=== PATIENT | male | born 1965 | race Caucasian/White ===

== ENCOUNTER 2016-10-23 11:11 | Emergency (ER) | payer OTHER ==
[2016-10-23 11:20] VITALS: TEMP 97.9; BMI 22.7
--- NOTE | 2016-10-23 11:29 | EDPRACDOC ---
- General Information Chief Complaint: Nausea,Vomiting,Diarrhea Stated Complaint: N/V/D ? DEHYDRATED SENT FROM URGENT CAR Time Seen by Provider: 10/23/16 11:21 Mode Of Arrival: Car Home Medications: Home Medications Ondansetron [Zofran Odt] 4 mg PO TID PRN #10 tab.dericdis 10/23/16 Allergies/Adverse Reactions: Allergies Allergy/AdvReac Type Severity Reaction Status Date / Time aspirin Allergy Intermediate Unknown/See Verified 10/23/16 11:19 Comments acetaminophen [From Tylenol] Allergy Unknown DUE TO Verified 10/23/16 11:19 LIVER DISEASE morphine Allergy Unknown NAUSEA / Verified 10/23/16 11:19 VOMITING / ITCHING tramadol Allergy Unknown Verified 10/23/16 11:19 - History of Present Illness Onset: 1 WK HPI: PT COMPLAINS OF COUGH PROD OF GREEN AND BLOODY SPUTUM, N/V/D, CHILLS, ABDOMINAL PAIN, STATES UNABLE TO TOLERATE ANY PO INTAKE. PT STATES THAT HIS ABD PAIN IS DIFFUSE AND ACHING, WENT TO URGENT CARE TODAY, WAS TOLD HE HAD A HERNIA, HIS LIVER WAS ENLARGED AND HE WAS DEHYDRATED AND NEEDED TO COME TO THE ED. Symptoms Occured: Reports: Spontaneous Duration: Reports: Intermittent Emesis: Reports: Food Particles Recent: Reports: None Pain Quality: Reports: Aching Pain Severity: Severe Pain Location: Reports: Diffuse Associated Signs and Symptoms: Reports: Fever, Chills, Nausea, Vomiting, Diarrhea. 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 YES Medications CONTRO[employer]ER [employer]PERATIONS AND HR MANAGER (Medication/ GOODIES POWDER-1000 Dose/Time) ED Past Medical History - History Reviewed Yes Nurses notes reviewed and agree except as marked - Patient Medical History Cardiac History: Reports: Hypertension GI/ History: Reports: Liver Failure (CIRRHOSIS, HEP B, HEP C) Psychological History: Reports: Depression - Social Medical History Smoking Status: Heavy tobacco smoker (5 or more cigarettes/day or daily pipe/ cigar) ETOH: None Substance Abuse: None EDM Review of Systems - Review of Systems Constitutional: Chills, Fever, Fatigue, Weakness Eyes: negative: Blurred Vision, Double Vision Ears: negative: Drainage Throat: negative: Pain Nose: Congestion, Discharge Respiratory: Cough. negative: Shortness of Breath, Wheezing Cardiovascular: negative: Chest Pain, Palpitations Gastrointestinal: Diarrhea, Nausea, Pain, Vomiting Genitourinary: negative: Dysuria, Frequency Neurological: negative: Dizziness, Headache, Numbness, Weakness Musculoskeletal: No Symptoms Reported Integumentary: No Symptoms Reported - Physical Exam Constitutional: Alert (Awake), No apparent distress Oriented to: Time, Person, Place Last recorded Vital Signs: Last Vital Signs Temp 97.9 F 10/23/16 11:16 Pulse 66 10/23/16 11:16 Resp 18 10/23/16 11:16 BP 134/77 10/23/16 11:16 Pulse Ox 98 10/23/16 11:16 Oxygen Pulse Oxygen Saturation 98 O2 Device Oxygen Flow Rate Fraction of Inspired Oxygen ( FIO2) - HEENT Head: Normal ( normocephalic) Eye Exam: Normal (PERRL, EOMI, Sclera white) Oropharynx: Normal (Pharynx:Moist without exudate,Gums-no swelling) Tympanic Membrane: Normal ENT EAC: Normal TMJ: Normal Nose: No Symptoms Reported (septum midline) Neck: Normal (FROM, trachea at midline) - Respiratory/Cardiovascular Respiratory: Normal - CTA (BBS clear to auscultation without adventitious sounds ) Cardiovascular: Normal (RRR without murmur, gallop or rub) - GI Auscultation: Normal (NABS) Palpation: Enlarged liver Tenderness: Diffuse, Moderate. negative: Guarding, Rebound, Rigidity Suarez's Sign: Negative - Musculoskeletal Back: Normal (Non-Tender) Extremities: Normal (Normal tone, Pulses 2+ No cyanosis or edema, FROM) - Integumentary Skin: Normal, Warm, Dry Lymphatics: Normal (no adenopathy) - Neurologic Memory Impaired: Normal Motor Function: Normal (Normal tone, Pulses 2+ No cyanosis or edema, FROM) Cranial Nerve: Normal (CN II-X11 intact sensation, strength 5/5) Cerebellar: Normal Mood Description: Normal Perception: Normal - Differential Diagnosis Bowel obstruction, Diverticular disease, Food poisoning, Gastritis, Gastroenteritis, Hepatitis, IBD, Pancreatitis, Urinary tract infection - Re-evaluation Re-evaluation 1 Re-evaluation Time: 13:04 (FEELS BETTER) - Results 10/23/16 11:50 10/23/16 11:50 - Diagnostic Imaging CXR Image interpreted by: Radiologist CHEST 2 VIEW COMPARISON: 02/27/2015 FINDINGS: Normal heart size, mediastinal contours, and pulmonary vascularity. Lungs hyperinflated but clear. No pulmonary infiltrate, pleural effusion or pneumothorax. Prior cervicothoracic fusion. No acute osseous findings. IMPRESSION: Hyperinflated lungs question COPD. No acute abnormalities. CT ABD/PELVIS Image interpreted by: Radiologist CT ABDOMEN AND PELVIS WITH CONTRAST TECHNIQUE: Multidetector CT imaging of the abdomen and pelvis was performed using the standard protocol following bolus administration of intravenous contrast. CONTRAST: 100 mL Isovue 370 COMPARISON: 07/20/2014 FINDINGS: Lower chest: Mild right basilar atelectasis. Lung bases otherwise clear. Normal heart size. Hepatobiliary: Nodular contour of the liver as can be seen with cirrhosis. No focal hepatic mass. Normal gallbladder. Pancreas: Normal. Spleen: Splenomegaly. Adrenals/Urinary Tract: Normal adrenal glands. Normal right kidney. 17 mm hypodense, fluid attenuating left renal mass most consistent with a cyst. Left kidney is otherwise normal. No obstructive uropathy. Normal bladder. Stomach/Bowel: No bowel wall thickening or dilatation. No pneumatosis, pneumoperitoneum or portal venous gas. Moderate amount of stool in the colon. No abdominal or pelvic free fluid. Vascular/Lymphatic: No abdominal or pelvic lymphadenopathy. Normal caliber abdominal aorta. Other: No fluid collection or hematoma. Musculoskeletal: No acute osseous abnormality. No lytic or sclerotic osseous lesion. IMPRESSION: 1. Cirrhotic liver with portal hypertension. 2. No acute abdominal or pelvic pathology. Decision Time to Discharge: 13:06 - Departure Disposition: Home Condition: Stable Final Diagnosis: Acute gastroenteritis Instructions: Acute Nausea and Vomiting (ED) Education/Counseling Given To: Patient Education/Counseling Given Regarding: Diagnosis, Treatment, Prognosis, Follow Up Referrals: None,No Provider [Primary Care Provider] - One Week Prescriptions: New Ondansetron [Zofran Odt] 4 mg PO TID PRN #10 tab.rapdis PRN Reason: Nausea/Vomiting Additional Instructions: N/V/D: clear liquids only for the next 6-8 hours, advance diet to bland as tolerated, return to the ED for any worsening symptoms or concerns.
[2016-10-23] MEDS ORDERED: ONDANSETRON HCL 4 MG/2 ML VIAL IV ONE (11:30)
[2016-10-23] MEDS ORDERED: NS 1,000 ML IV ONE (11:30)
[2016-10-23] MEDS ORDERED: HYDROmorphone 1 MG INJECTION IV ONE (11:31)
--- NOTE | 2016-10-23 11:55 | DIRPT ---
CLINICAL DATA: Cough, chills, cough productive of green and bloody sputum, nausea vomiting and diarrhea for 2 weeks, abdominal pain EXAM: CHEST 2 VIEW COMPARISON: 02/27/2015 FINDINGS: Normal heart size, mediastinal contours, and pulmonary vascularity. Lungs hyperinflated but clear. No pulmonary infiltrate, pleural effusion or pneumothorax. Prior cervicothoracic fusion. No acute osseous findings. IMPRESSION: Hyperinflated lungs question COPD. No acute abnormalities. Electronically Signed By: Lane Mccormack M.D. On: 10/23/2016 11:52
[2016-10-23] MEDS ORDERED: Pharmacy Review for Metformin - IV Contrast Given SCH (12:00)
[2016-10-23 12:01] LABS: AMORPHOUS 2+; LEUKOCYTES/URINE NEG (NEGATIVE); NITRITE/URINE NEG (NEGATIVE); URINE OCCULT BLOOD NEG (NEG/TRACE)
[2016-10-23 12:04] LABS: AUTOMATED BASOPHIL 0.4 % (0-2); AUTOMATED EOSINOPHIL 2.3 % (0-5); AUTOMATED LYMPH 22.9 % (17-44); AUTOMATED MONOCYTE 11.3 % (3-10); AUTOMATED NEUTROPHIL 63.1 % (45-76); MPV 8.7 fL (7.4-10.4)
[2016-10-23 12:08] LABS: BLOOD UREA NITROGEN 20 MG/DL (9-20); CALCIUM 9.6 MG/DL (8.4-10.2); CALCULATED OSMOLALITY 272 MOs/Kg (270-290); CHLORIDE 105 mEq/L (98-107); GLUCOSE 94 mg/dL (70-99); SODIUM LEVEL 140 mEq/L (137-146); TOTAL PROTEIN 7.9 G/DL (6.3-8.2)
[2016-10-23 12:57] VITALS: PULSE 65
--- NOTE | 2016-10-23 12:59 | DIRPT ---
CLINICAL DATA: Abdominal pain, nausea, vomiting, diarrhea EXAM: CT ABDOMEN AND PELVIS WITH CONTRAST TECHNIQUE: Multidetector CT imaging of the abdomen and pelvis was performed using the standard protocol following bolus administration of intravenous contrast. CONTRAST: 100 mL Isovue 370 COMPARISON: 07/20/2014 FINDINGS: Lower chest: Mild right basilar atelectasis. Lung bases otherwise clear. Normal heart size. Hepatobiliary: Nodular contour of the liver as can be seen with cirrhosis. No focal hepatic mass. Normal gallbladder. Pancreas: Normal. Spleen: Splenomegaly. Adrenals/Urinary Tract: Normal adrenal glands. Normal right kidney. 17 mm hypodense, fluid attenuating left renal mass most consistent with a cyst. Left kidney is otherwise normal. No obstructive uropathy. Normal bladder. Stomach/Bowel: No bowel wall thickening or dilatation. No pneumatosis, pneumoperitoneum or portal venous gas. Moderate amount of stool in the colon. No abdominal or pelvic free fluid. Vascular/Lymphatic: No abdominal or pelvic lymphadenopathy. Normal caliber abdominal aorta. Other: No fluid collection or hematoma. Musculoskeletal: No acute osseous abnormality. No lytic or sclerotic osseous lesion. IMPRESSION: 1. Cirrhotic liver with portal hypertension. 2. No acute abdominal or pelvic pathology. Electronically Signed By: Yolette Deleon On: 10/23/2016 12:56
[2016-10-23 13:21] VITALS: BP 121/75
== END 2016-10-23 13:26 | disposition home or self-care (01) ==
LOC: ED 11:11
DX: K52.9 Noninfective gastroenteritis and colitis, unspecified (principal)
CPT/HCPCS: 36415; 71020; 74177; 80053; 81001; 83690; 85025; 96361; 96374; 96375; 99284; A9698; J1170; J2405